=== PATIENT | female | born 1985 | race Caucasian/White ===

== ENCOUNTER 2020-12-28 12:27 | Outpatient (CLI) | payer OTHER ==
[2020-12-28 18:10] LABS: BASOPHILS # (AUTO) 0.1 10^3/uL (0.0-0.1); EOSINOPHILS # (AUTO) 0.3 10^3/uL (0.0-0.7); EOSINOPHILS % (AUTO) 4.3 %; HCT - HEMATOCRIT 40.1 % (37.0-47.0); HGB - HEMOGLOBIN 13.6 g/dL (12.0-16.0); LYMPHOCYTES # (AUTO) 1.9 10^3/uL (1.5-3.5); LYMPHOCYTES % (AUTO) 32.8 %; MEAN CORPUSCULAR HEMOGLOBIN 29.7 pg (27.0-31.0); MEAN CORPUSCULAR HGB CONC 33.9 g/dL (32.0-36.0); MEAN CORPUSCULAR VOLUME 87.6 fL (81.0-99.0); MEAN PLATELET VOLUME 10.2 fL (7.9-10.8); MONOCYTES # (AUTO) 0.4 10^3/uL (0.0-1.0); MONOCYTES % (AUTO) 7.4 %; NEUTROPHILS # (AUTO) 3.2 10^3/uL (1.5-6.6); NEUTROPHILS % (AUTO) 54.3 %; PLT - PLATELET COUNT 249 10^3/uL (130-450); RED BLOOD COUNT 4.58 10^6/uL (4.20-5.40); RED CELL DISTRIBUTION WIDTH 12.6 % (12.0-15.0); WHITE BLOOD COUNT 5.9 x10^3/uL (4.8-10.8)
[2020-12-28 18:42] LABS: THYROID STIMULATING HORMONE 2.08 uIU/mL (0.34-5.60)
[2020-12-28 18:44] LABS: ALBUMIN 4.8 g/dL (3.2-5.5); ALBUMIN/GLOBULIN RATIO 1.7 (1.0-2.2); ALKALINE PHOSPHATASE 46 IU/L (42-121); ALT ALANINE AMINOTRANSFERASE 24 IU/L (10-60); AST ASPARTATE AMINOTRANSFERASE 20 IU/L (10-42); BILIRUBIN,TOTAL 0.9 mg/dL (0.2-1.0); BUN - BLOOD UREA NITROGEN 13 mg/dL (6-20); CALCIUM 9.6 mg/dL (8.5-10.3); CARBON DIOXIDE - CO2 28 mmol/L (21-32); CHLORIDE 104 mmol/L (101-111); CHOL/HDL RATIO 3.6 (<4.4); CHOLESTEROL 218 mg/dL; CREATININE 0.8 mg/dL (0.4-1.0); GFR - MDRD 83 (>89); GLUCOSE 97 mg/dL (70-100); HDL CHOLESTEROL 61 mg/dL; LDL CHOLESTEROL,CALCULATED 130 mg/dL; LDL/HDL RATIO 2.1 (<4.4); POTASSIUM 4.1 mmol/L (3.5-5.0); SODIUM 140 mmol/L (135-145); TOTAL PROTEIN 7.7 g/dL (6.7-8.2); TRIGLYCERIDES 134 mg/dL; VLDL CHOLESTEROL 27 mg/dL
== END 2020-12-28 12:28 | disposition home or self-care (01) ==
LOC: LAB.N 12:27
PROVIDERS: ATTEND Internal Medicine
DX: U07.1 COVID-19 (principal); Z13.6 Encounter for screening for cardiovascular disorders; R53.83 Other fatigue; N39.0 Urinary tract infection, site not specified; D22.9 Melanocytic nevi, unspecified
CPT/HCPCS: 36415; 80053; 80061; 82607; 83721; 84443; 85025

== ENCOUNTER 2021-08-18 11:33 | Outpatient (CLI) | payer MEDICAID ==
[2021-08-18 12:03] LABS: BASOPHILS # (AUTO) 0.1 10^3/uL (0.0-0.1); BASOPHILS % (AUTO) 0.6 %; EOSINOPHILS % (AUTO) 0.2 %; HCT - HEMATOCRIT 39.9 % (37.0-47.0); LYMPHOCYTES % (AUTO) 22.4 %; MEAN CORPUSCULAR HEMOGLOBIN 29.5 pg (27.0-31.0); MEAN CORPUSCULAR HGB CONC 35.1 g/dL (32.0-36.0); MEAN CORPUSCULAR VOLUME 84.2 fL (81.0-99.0); MEAN PLATELET VOLUME 10.1 fL (7.9-10.8); MONOCYTES # (AUTO) 0.5 10^3/uL (0.0-1.0); NEUTROPHILS # (AUTO) 6.4 10^3/uL (1.5-6.6); NEUTROPHILS % (AUTO) 70.6 %; PLT - PLATELET COUNT 236 10^3/uL (130-450); RED BLOOD COUNT 4.74 10^6/uL (4.20-5.40); RED CELL DISTRIBUTION WIDTH 12.3 % (12.0-15.0); WHITE BLOOD COUNT 9.1 x10^3/uL (4.8-10.8)
[2021-08-19 06:10] LABS: HBsAG SCREEN Negative (Negative); HCV AB <0.1 s/co ratio (0.0-0.9); RPR Non Reactive (Non Reactive)
[2021-08-19 07:10] LABS: HIV SCREEN 4TH GENERATION Non Reactive (Non Reactive)
[2021-08-19 11:10] LABS: VARICELLA-ZOSTER AB IGG 1373 index (Immune >165)
== END 2021-08-18 11:34 | disposition home or self-care (01) ==
LOC: LAB 11:33
PROVIDERS: ATTEND Nurse Practitioner Obstetrics & Gynecology
DX: Z36.89 Encounter for other specified antenatal screening (principal)
CPT/HCPCS: 36415; 85025; 86592; 86762; 86787; 86803; 86850; 86900; 86901; 87340; 87389

== ENCOUNTER 2021-08-24 15:35 | Emergency (ER) | payer MEDICAID ==
[2021-08-24] MEDS ORDERED: SODIUM CHLORIDE 0.9% 1,000 ML IV STA (16:21)
[2021-08-24] MEDS ORDERED: LACTATED RINGERS 1,000 ML IV STA (16:21)
--- NOTE | 2021-08-24 16:22 | ED Physician Documentation ---
History of Present Illness - Stated complaint Stated Complaint: DIZZINESS - Chief complaint Chief Complaint: General - History obtained from History obtained from: Patient - Additonal information Additional information: 35-year-old woman who is a at 12 weeks gestation. Initial was complicated by pyelonephritis, pulmonary edema and swine flu. She has been vomiting all through this and now feels weak and dizzy with tunnel vision especially with exertion. Her is a bottom scrubber and he did orthostatics and her heart rate goes up and her blood pressure goes down to 78 with orthostatic vitals. She denies abdominal pain. She has been taking both Zofran and Reglan for nausea. Anytime she smells something she feels nauseous. She denies cramping or bleeding. Review of Systems Constitutional: denies: Fever, Chills GI: denies: Abdominal Pain, Nausea, Vomiting, Diarrhea : denies: Dysuria, Frequency PD PAST MEDICAL HISTORY - Past Medical History Past Medical History: No Cardiovascular: None Respiratory: None Neuro: None Endocrine/Autoimmune: None GI: None AUTOMOBILE SERVICE WRITER: None : Chronic bladder infection HEENT: None Psych: None Musculoskeletal: None Derm: None - Past Surgical History Past Surgical History: Yes HEENT: Tonsil/Adenoidectomy - Present Medications Home Medications: Ambulatory Orders Medication Instructions Recorded Confirmed Doxylamine Succinate [Unisom] 25 mg PO DAILY PRN 08/24/21 08/24/21 Metoclopramide [Reglan] 10 mg PO QID PRN 08/24/21 08/24/21 Ondansetron Odt [Zofran Odt] 4 mg SL BID PRN 08/24/21 08/24/21 Pyridoxine HCl (Vitamin B6) 50 mg PO DAILY PRN 08/24/21 08/24/21 [Pyridoxine HCl] cephALEXin [Keflex] 500 mg PO BID 08/24/21 08/24/21 - Allergies Allergies/Adverse Reactions: Allergies Allergy/AdvReac Type Severity Reaction Status Date / Time No Known Drug Allergies Allergy Verified 08/24/21 15:39 - Social History Does the pt smoke?: No Smoking Status: Never smoker Does the pt drink ETOH?: No Does the pt have substance abuse?: No - Immunizations Immunizations are current?: No Immunizations: Other immun not current PD ED PE NORMAL - Vitals Vital signs reviewed: Yes - General General: Alert and oriented X 3, No acute distress - Neck Neck: Supple, no meningeal sign, No bony TTP - Cardiac Cardiac: RRR, No murmur - Respiratory Respiratory: No respiratory distress, Clear bilaterally - Abdomen Abdomen: Normal bowel sounds, Soft, Non tender - Female Female : Other (Bedside ultrasound demonstrates single live intrauterine with heart rate about 170.) - Back Back: No CVA TTP, No spinal TTP - Derm Derm: Normal color, Warm and dry - Extremities Extremities: No edema, No calf tenderness / cord - Neuro Neuro: Alert and oriented X 3, Normal speech Results - Vitals Vitals: Vital Signs - 24 hr 08/24/21 08/24/21 08/24/21 15:40 17:43 19:00 Temperature 36.8 C 36.8 C Heart Rate 72 76 76 Respiratory 18 16 16 Rate Blood Pressure 117/76 106/66 106/66 O2 Saturation 100 100 100 08/24/21 19:11 Temperature 36.8 C Heart Rate 72 Respiratory 16 Rate Blood Pressure 110/65 O2 Saturation 99 Oxygen O2 Source Room air - Labs Labs: Laboratory Tests 08/24/21 08/24/21 16:28 16:28 WBC 9.5 RBC 4.22 Hgb 12.6 Hct 34.9 L MCV 82.7 MCH 29.9 MCHC 36.1 H RDW 12.3 Plt Count 210 MPV 9.9 Neut # (Auto) 7.2 H Lymph # (Auto) 1.8 [place] # (Auto) 0.5 Eos # (Auto) 0.0 Baso # (Auto) 0.0 Absolute Nucleated RBC 0.00 Nucleated RBC % 0.0 Sodium 136 Potassium 3.4 L Chloride 105 Carbon Dioxide 19 L Anion Gap 12.0 BUN 8 Creatinine 0.8 Estimated GFR (MDRD) 83 L Glucose 91 Calcium 9.3 Total Bilirubin 0.3 AST 16 ALT 19 Alkaline Phosphatase 32 L Total Protein 6.7 Albumin 4.0 Globulin 2.7 Albumin/Globulin Ratio 1.5 PD MEDICAL DECISION MAKING - ED course ED course: 35-year-old woman presents with dizziness related to hyperemesis gravidarum and feeling much better after IV fluids and IV Reglan here. Tolerated a p.o. challenge. Departure - Departure Disposition: 01 Home, Self Care Clinical Impression: Hyperemesis complicating , antepartum Condition: Good Record reviewed to determine appropriate education?: Yes Instructions: ED Preg Morning Sickness Comments: Call your doctor to arrange a follow-up appointment, make the next available appointment. In the interim, return anytime if worse or if new symptoms develop. Discharge Date/Time: 08/24/21 19:11
[2021-08-24 16:32] LABS: BASOPHILS % (AUTO) 0.3 %; EOSINOPHILS % (AUTO) 0.4 %; HCT - HEMATOCRIT 34.9 % (37.0-47.0); HGB - HEMOGLOBIN 12.6 g/dL (12.0-16.0); LYMPHOCYTES # (AUTO) 1.8 10^3/uL (1.5-3.5); LYMPHOCYTES % (AUTO) 18.8 %; MEAN CORPUSCULAR HEMOGLOBIN 29.9 pg (27.0-31.0); MEAN CORPUSCULAR HGB CONC 36.1 g/dL (32.0-36.0); MEAN CORPUSCULAR VOLUME 82.7 fL (81.0-99.0); MEAN PLATELET VOLUME 9.9 fL (7.9-10.8); MONOCYTES # (AUTO) 0.5 10^3/uL (0.0-1.0); MONOCYTES % (AUTO) 5.4 %; NEUTROPHILS # (AUTO) 7.2 10^3/uL (1.5-6.6); PLT - PLATELET COUNT 210 10^3/uL (130-450); RED BLOOD COUNT 4.22 10^6/uL (4.20-5.40); RED CELL DISTRIBUTION WIDTH 12.3 % (12.0-15.0); WHITE BLOOD COUNT 9.5 x10^3/uL (4.8-10.8)
[2021-08-24 16:45] LABS: ALBUMIN/GLOBULIN RATIO 1.5 (1.0-2.2); BILIRUBIN,TOTAL 0.3 mg/dL (0.2-1.0); CALCIUM 9.3 mg/dL (8.5-10.3); CREATININE 0.8 mg/dL (0.4-1.0); POTASSIUM 3.4 mmol/L (3.5-5.0); TOTAL PROTEIN 6.7 g/dL (6.7-8.2)
[2021-08-24] MEDS ORDERED: METOCLOPRAMIDE 10 MG/2 ML VIAL IVP STA (18:15)
[2021-08-24 19:12] VITALS: BP 110/65
== END 2021-08-24 19:11 | disposition home or self-care (01) ==
LOC: ED 15:35
DX: O21.0 Mild hyperemesis gravidarum (principal); Z3A.12 12 weeks gestation of pregnancy
CPT/HCPCS: 36415; 80053; 85025; 96361; 96374; 99282; 99283; J2765; J7120

== ENCOUNTER 2021-09-19 15:38 | Emergency (ER) | payer MEDICAID ==
[2021-09-19] MEDS ORDERED: SODIUM CHLORIDE 0.9% 1,000 ML IV STA ×3 (15:53→17:19)
[2021-09-19 15:58] LABS: BASOPHILS % (AUTO) 0.4 %; EOSINOPHILS # (AUTO) 0.1 10^3/uL (0.0-0.7); HCT - HEMATOCRIT 36.3 % (37.0-47.0); HGB - HEMOGLOBIN 12.6 g/dL (12.0-16.0); LYMPHOCYTES # (AUTO) 1.9 10^3/uL (1.5-3.5); LYMPHOCYTES % (AUTO) 20.8 %; MEAN CORPUSCULAR HEMOGLOBIN 29.6 pg (27.0-31.0); MEAN CORPUSCULAR HGB CONC 34.7 g/dL (32.0-36.0); MEAN CORPUSCULAR VOLUME 85.4 fL (81.0-99.0); MEAN PLATELET VOLUME 9.7 fL (7.9-10.8); MONOCYTES # (AUTO) 0.5 10^3/uL (0.0-1.0); MONOCYTES % (AUTO) 5.8 %; NEUTROPHILS # (AUTO) 6.7 10^3/uL (1.5-6.6); NEUTROPHILS % (AUTO) 71.7 %; PLT - PLATELET COUNT 225 10^3/uL (130-450); RED BLOOD COUNT 4.25 10^6/uL (4.20-5.40); RED CELL DISTRIBUTION WIDTH 12.8 % (12.0-15.0); WHITE BLOOD COUNT 9.3 x10^3/uL (4.8-10.8)
[2021-09-19 16:12] LABS: ALBUMIN 3.8 g/dL (3.2-5.5); ALBUMIN/GLOBULIN RATIO 1.2 (1.0-2.2); BILIRUBIN,TOTAL 0.4 mg/dL (0.2-1.0); CALCIUM 9.5 mg/dL (8.5-10.3); CREATININE 0.6 mg/dL (0.4-1.0); MAGNESIUM 1.9 mg/dL (1.7-2.8); PHOSPHORUS 3.1 mg/dL (2.5-4.6); POTASSIUM 4.2 mmol/L (3.5-5.0)
[2021-09-19 16:24] LABS: BILIRUBIN,URINE NEGATIVE (NEGATIVE); GLUCOSE, URINE (UA) NEGATIVE (NEGATIVE); KETONES,URINE (UA) NEGATIVE (NEGATIVE); LEUKOCYTE ESTERASE, URINE NEGATIVE (NEGATIVE); NITRITE,URINE NEGATIVE (NEGATIVE); OCCULT BLOOD,URINE NEGATIVE (NEGATIVE); PROTEIN,URINE NEGATIVE (NEGATIVE); UROBILINOGEN,URINE 0.2 (NORMAL) E.U./dL (NORMAL)
[2021-09-19 16:26] LABS: CLARITY,URINE CLEAR (CLEAR); HCG UR QUAL POSITIVE
--- NOTE | 2021-09-19 16:59 | ED Physician Documentation ---
PD HPI NVD - Stated complaint Stated Complaint: LOW BP,DEHYDRATED - Chief complaint Chief Complaint: Abd Pain - History obtained from History obtained from: Patient - History of Present Illness Timing - onset: How many days ago (The patient has had ongoing related hyperemesis for 2 to 3 months. She has been having notable nausea and less intake over the last several days to a week. Feeling lightheaded posteriorly. Her took her blood pressure at home and was 80 systolic with standing up 1-2 days.) Timing - duration: Days (The patient has had related hyperemesis despite multiple medications for couple of months. He has been more notable in the last week and having dizzy and lightheaded the last couple of days. Similar symptoms 3 weeks ago and felt better with IV fluids in the ER.), Weeks Timing - details: Gradual onset, Still present, Waxing and waning Associated symptoms: Near syncope / syncope (feeling lightheaded standing up the past few days. 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 No: Fever, Abdominal pain Contributing factors: Other (). No: Sick contact, Bad food, Recent antibiotics, Diabetes Improved by: Meds (some improved with Zofran, but not well. Feels more nauseated with vitamins.). No: Eating Worsened by: Eating Similar symptoms before: Diagnosis (hyperemesis gravidarum.) Recently seen: Clinic, Emergency Dept Review of Systems Constitutional: denies: Fever, Chills Nose: denies: Rhinorrhea / runny nose, Congestion Throat: denies: Sore throat Respiratory: denies: Cough GI: reports: Nausea, Vomiting (only occasional, but poor PO intake due to nausea. She states all foods smell bad as well.), Constipation (has less BMs but felt due to less intake.). denies: Abdominal Pain, Diarrhea : reports: Dysuria (recently and Rx oral abx by her CNM last week.). denies: Frequency, Discharge, Vaginal bleeding Neurologic: reports: Generalized weakness. denies: Focal weakness, Numbness, Syncope PD PAST MEDICAL HISTORY - Past Medical History Cardiovascular: None Respiratory: None Neuro: None Endocrine/Autoimmune: None GI: None [place] GUIDE: None : Chronic bladder infection HEENT: None Psych: None Musculoskeletal: None Derm: None - Past Surgical History Past Surgical History: Yes HEENT: Tonsil/Adenoidectomy - Present Medications Home Medications: Ambulatory Orders Medication Instructions Recorded Confirmed Doxylamine Succinate [Unisom] 25 mg PO DAILY PRN 08/24/21 09/19/21 Metoclopramide [Reglan] 10 mg PO QID PRN 08/24/21 09/19/21 Ondansetron Odt [Zofran Odt] 4 mg SL BID PRN 08/24/21 09/19/21 Pyridoxine HCl (Vitamin B6) 50 mg PO DAILY PRN 08/24/21 09/19/21 [Pyridoxine HCl] cephALEXin [Keflex] 500 mg PO BID 08/24/21 09/19/21 Famotidine [Pepcid] 20 mg PO DAILY #20 tablet 09/19/21 Folic Acid 1 mg PO DAILY 20 Days #20 tablet 09/19/21 - Allergies Allergies/Adverse Reactions: Allergies Allergy/AdvReac Type Severity Reaction Status Date / Time No Known Drug Allergies Allergy Verified 08/24/21 15:39 - Social History Does the pt smoke?: No Smoking Status: Never smoker Does the pt drink ETOH?: No Does the pt have substance abuse?: No - Immunizations Immunizations are current?: No Immunizations: Other immun not current PD ED PE NORMAL - Vitals Vital signs reviewed: Yes - General General: Alert and oriented X 3, No acute distress, Well developed/nourished - HEENT HEENT: Pharynx benign. No: Moist mucous membranes - Neck Neck: Supple, no meningeal sign, No adenopathy - Cardiac Cardiac: RRR, No murmur - Respiratory Respiratory: Clear bilaterally - Abdomen Abdomen: Soft, Non tender, Other (gravid with fundus few cm below umbilicus. ) - Female Female : Deferred - Rectal Rectal: Deferred - Back Back: No CVA TTP - Derm Derm: Normal color, Warm and dry - Extremities Extremities: No edema, No calf tenderness / cord - Neuro Neuro: Alert and oriented X 3, No motor deficit, Normal speech Results - Vitals Vitals: Vital Signs - 24 hr 09/19/21 09/19/21 09/19/21 15:46 17:49 19:11 Temperature 37.0 C Heart Rate 61 65 60 Respiratory 19 18 18 Rate Blood Pressure 131/81 H 125/63 132/72 H O2 Saturation 100 99 100 Oxygen O2 Source Room air - Labs Labs: Laboratory Tests 09/19/21 09/19/21 09/19/21 15:54 15:54 16:03 WBC 9.3 RBC 4.25 Hgb 12.6 Hct 36.3 L MCV 85.4 MCH 29.6 MCHC 34.7 RDW 12.8 Plt Count 225 MPV 9.7 Neut # (Auto) 6.7 H Lymph # (Auto) 1.9 [place] # (Auto) 0.5 Eos # (Auto) 0.1 Baso # (Auto) 0.0 Absolute Nucleated RBC 0.00 Nucleated RBC % 0.0 Sodium 139 Potassium 4.2 Chloride 105 Carbon Dioxide 25 Anion Gap 9.0 BUN 8 Creatinine 0.6 Estimated GFR (MDRD) 114 Glucose 107 H Calcium 9.5 Phosphorus 3.1 Magnesium 1.9 Total Bilirubin 0.4 AST 17 ALT 21 Alkaline Phosphatase 38 L Total Protein 7.0 Albumin 3.8 Globulin 3.2 Albumin/Globulin Ratio 1.2 Lipase 39 Urine Color YELLOW Urine Clarity CLEAR Urine pH 6.0 Ur Specific [place] 1.020 Urine Protein NEGATIVE Urine Glucose (UA) NEGATIVE Urine Ketones NEGATIVE Urine Occult Blood NEGATIVE Urine Nitrite NEGATIVE Urine Bilirubin NEGATIVE Urine Urobilinogen 0.2 (NORMAL) Ur Leukocyte Esterase NEGATIVE Ur Microscopic Review NOT INDICATED Urine Culture Comments NOT INDICATED Urine HCG, Qual POSITIVE PD MEDICAL DECISION MAKING - ED course Complexity details: reviewed results (bedside U/S showing normal IUP c/w dates with movement and FHB 130s. ), considered differential ( related nausea and poor appetite with dehydration. Posturally lightheaded the last several days. We can give IV fluids and antiemetics. Consider H2 leticia as well. She does feel nauseated with her vitamins so consider just a multivitamin without the iron. increase B6 to BID. ), d/w patient Departure - Departure Disposition: 01 Home, Self Care Clinical Impression: Hyperemesis complicating , antepartum, Postural dizziness Condition: Stable Record reviewed to determine appropriate education?: Yes Instructions: ED Nausea Vomiting Follow-Up: Liseth Jacobs CNM, MASTER CONTROL SUPERVISOR [Primary Care Provider] - Prescriptions: Folic Acid 1 mg PO DAILY 20 Days #20 tablet Famotidine [Pepcid] 20 mg PO DAILY #20 tablet Comments: You were given IV fluids here to improve hydration. Hopefully this will help you feel less lightheaded in the short-term anyway. I would suggest increasing your vitamin B6 50 mg from once daily to twice daily. Take it with a little bit of food if you are able. Some people will feel nauseous or have stomach irritation related to the iron in the vitamins. To see if that is part of it, I would suggest stopping your vitamin and instead either a regular multivitamin or no vitamin, but to take a folic acid supplement daily. You may also have some element of irritated stomach (gastritis) due to the lessened intake and nausea. This can augment symptoms as well. I would suggest famotidine acid reducing medicine daily for the next 2 to 3 weeks. This is safe in . To that all, then add ondansetron or Reglan if needed for nausea. You can use the doxylamine when needed. This is particularly useful at night since it does make you sleepy anyway. Follow-up with your nurse credit administration specialist this coming week. I transmitted the scripts to [facility] pharmacy in [place]. Discharge Date/Time: 09/19/21 19:12
[2021-09-19] MEDS ORDERED: ONDANSETRON 4 MG/2 ML VIAL IVP STA (17:19)
[2021-09-19] MEDS ORDERED: DEXAMETHASONE 10 MG/ML VIAL IVP STA (17:20)
[2021-09-19] MEDS ORDERED: FAMOTIDINE 20 MG/2 ML VIAL IVP STA (17:20)
[2021-09-19 19:12] VITALS: BP 132/72
== END 2021-09-19 19:12 | disposition home or self-care (01) ==
LOC: ED 15:38
DX: O21.9 Vomiting of pregnancy, unspecified (principal); O99.891 Other specified diseases and conditions complicating pregnancy; R42 Dizziness and giddiness; Z3A.00 Weeks of gestation of pregnancy not specified
CPT/HCPCS: 36415; 80053; 81001; 81003; 81025; 83690; 83735; 84100; 85025; 87086; 96374; 96375; 99284

== ENCOUNTER 2021-10-26 16:54 | Outpatient (CLI) | payer MEDICAID ==
--- NOTE | 2021-10-27 12:54 | Ultrasound Report ---
PROCEDURE: OB F/U or Repeat INDICATIONS: SUPERVISION OF OUTSIDE/PRIOR DATING DATA: Last menstrual period (LMP): Unknown. LMP-based estimated date of delivery (HALIE): Unknown. First dating scan (date and location): 08/18/2021. Estimated date of delivery (HALIE) from first dating scan: 03/08/2022. The below data below was generated using the ultrasound HALIE of 03/08/2022 TECHNIQUE: Real-time scanning was performed of the fetus, with image documentation and biometric measurements. COMPARISON: None. FINDINGS: General: A single living intrauterine gestation is present. Presentation: Breech Placenta: Placental position is anterior, without previa. Amniotic fluid index: 18.5 cm, 83rd percentile for gestational age. Largest pocket 5.2 cm. heart rate: 145 beats per minute. Maternal cervical canal: Closed. anatomy: Completion of anatomy performed on 10/18/2021 is performed with evaluation of the spine today demonstrated to be normal. IMPRESSION: 1. Single living intrauterine with estimated delivery date of 03/08/2022. 2. Completion of anatomy scan demonstrating normal anatomy. Reviewed by: Diaz Rothman on 10/27/2021 12:53 PM PDT Approved by: Diaz Rothman on 10/27/2021 12:53 PM PDT Station ID: [id number]
== END 2021-10-26 16:55 | disposition home or self-care (01) ==
LOC: DI 16:54
PROVIDERS: ATTEND Nurse Practitioner Obstetrics & Gynecology
DX: Z36.89 Encounter for other specified antenatal screening (principal)

== ENCOUNTER 2021-12-06 14:16 | Outpatient (CLI) | payer MEDICAID ==
[2021-12-06 18:04] LABS: HCT - HEMATOCRIT 35.8 % (37.0-47.0); HGB - HEMOGLOBIN 12.2 g/dL (12.0-16.0); MEAN CORPUSCULAR HEMOGLOBIN 30.7 pg (27.0-31.0); MEAN CORPUSCULAR HGB CONC 34.1 g/dL (32.0-36.0); MEAN CORPUSCULAR VOLUME 89.9 fL (81.0-99.0); MEAN PLATELET VOLUME 10.1 fL (7.9-10.8); RED BLOOD COUNT 3.98 10^6/uL (4.20-5.40); RED CELL DISTRIBUTION WIDTH 12.8 % (12.0-15.0); WHITE BLOOD COUNT 12.6 x10^3/uL (4.8-10.8)
== END 2021-12-06 14:17 | disposition home or self-care (01) ==
LOC: LAB.N 14:16
PROVIDERS: ATTEND Nurse Practitioner Obstetrics & Gynecology
DX: Z36.9 Encounter for antenatal screening, unspecified (principal)
CPT/HCPCS: 36415; 82950; 85027